=== PATIENT | female | born 1960 | race Caucasian/White ===

== ENCOUNTER 2017-02-22 17:47 | Emergency (ER) | payer BC ==
[2017-02-22 18:04] VITALS: RESP 16; O2SAT 98
--- NOTE | 2017-02-22 19:01 | EDPHY ---
H & P Stated Complaint: skin incision reddened Source: Patient, Family, Old records Exam Limitations: No limitations - Personal History Current Tetanus/Diphtheria Vaccine: Yes Current Tetanus Diphtheria and Acellular Pertussis (TDAP): Yes - Medical/Surgical History Hx Asthma: No Hx Chronic Respiratory Disease: No Hx Diabetes: No Hx Cardiac Disease: No Hx Renal Disease: No Hx Cirrhosis: No Hx Alcoholism: No Hx HIV/AIDS: No Hx Splenectomy or Spleen Trauma: No Other PMH: SBO surg , hypothyroidism , concussion - Social History Smoking Status: Never smoked Time Seen by Provider: 02/22/17 17:51 HPI/ROS: CHIEF COMPLAINT: Surgical incision redness and drainage HISTORY OF PRESENT ILLNESS: 56-year-old female presents to the emergency department with her for redness around her umbilical incision and purulent drainage. Patient had a small bowel obstruction and had surgery at an outside hospital in [place] 6 days ago. 4 days ago she developed redness around her incision and was given IV antibiotics and started on oral antibiotics. Patient was discharged from the hospital yesterday. The redness had improved. This morning she noticed increased redness again, mild tenderness and purulent drainage. Patient reports chills, no fevers, no nausea or vomiting. She does report feeling better today than yesterday. She had a bowel movement today and has been eating without difficulty. Patient is taking Augmentin. She denies cough, shortness of breath, chest pain. REVIEW OF SYSTEMS: A comprehensive 10 point review of systems is otherwise negative aside from elements mentioned in the history of present illness. (Tasha Hearn) - Physical Exam Exam: Physical Exam Gen: Alert and Oriented, NAD HEENT: PERRL, moist mucous membranes NECK: no meningismus CV: regular rate and regular rhythm PULM: CTAB, no wheezes ABDOMEN: soft, umbilical incision with surrounding erythema, purulent drainage from distal aspect of incision, small area of induration under distal incision, other stab incisions to lateral abdomen with no surrounding erythema or drainage. Otherwise abdomen is soft and nontender BACK: No CVA tenderness NEURO: Neurologically grossly intact EXTREMITIES: normal appearing SKIN: no rash or break in skin on exposed skin PSYCH: answers questions appropriately. (Tasha Hearn) Constitutional: Initial Vital Signs Temperature (C) 37.5 C 02/22/17 18:02 Heart Rate 92 02/22/17 18:02 Respiratory Rate 16 02/22/17 18:02 Blood Pressure 142/89 H 02/22/17 18:02 O2 Sat (%) 98 02/22/17 18:02 O2 Delivery Mode Room Air Allergies/Adverse Reactions: epinephrine Allergy (Verified 02/22/17 18:04) Home Medications: Medication Instructions Recorded Sulfamethox/Tmp 800/160 mg 1 tab PO BID #14 tab 02/22/17 [Bactrim Ds] Medical Decision Making - Diagnostics Imaging: Discussed imaging studies w/ will call order clerk Radiologist - Diagnostics Imaging Results: Imaging Impressions Abdomen Ultrasound 02/22/17 18:30 Impression: Evidence of cellulitis in the periumbilical region inferior to the umbilicus and a tiny abscess adjacent to a small drainage tract in the skin, as above. Results called and discussed with Tasha Hearn N.P., on February 22, 2017 at 1926. ED Course/Re-evaluation: I examined this patient with Tasha Heran. Had a long discussion with the patient and her who is a physician in [place]. This patient is not systemically ill. She is feeling much better than even yesterday. She is moving her bowels well. I highly highly doubt any sort of bowel perforation or bowel leak from the anastomosis. Believe she has a superficial skin infection. I was in the room during the ultrasound there is a very tiny maybe quarter of a cm abscess that is already spontaneously draining through the skin. This patient is on Augmentin but I believe we need to broaden her coverage to cover for methicillin-resistant Staph aureus. We will add Bactrim twice daily. This patient is safe to return to [place] tomorrow. The and patient are comfortable with the plan. (Nabil Davies) 56-year-old female presents concerned about an incisional infection after a bowel resection status post small-bowel obstruction 6 days ago. Patient is taking Augmentin. IV established, CBC and chemistry panel obtained which are unremarkable. Patient has evidence of a superficial incisional cellulitis, ultrasound shows no deep abscess. Patient has no evidence of systemic illness or infection. We will add Bactrim to the patient's antibiotics for broader coverage. She is feeling better today than she did yesterday. Patient will return to [place] tomorrow and will follow up with her primary care doctor. She is given strict return precautions. (Tasha Hearn) Differential Diagnosis: Diagnosis considered but not limited to peritoneal abscess, cellulitis, superficial cellulitis, superficial abscess, necrotizing fasciitis, small-bowel obstruction (Tasha Hearn) - Data Points Laboratory Results: Laboratory Results 02/22/17 18:39 02/22/17 18:39 02/22/17 02/22/17 18:39 18:39 WBC 9.21 10^3/uL 10^3/uL (3.80-9.50) RBC 4.42 10^6/uL 10^6/uL (4.18-5.33) Hgb 12.9 g/dL g/dL (12.6-16.3) Hct 37.5 % L % (38.0-47.0) MCV 84.8 fL fL (81.5-99.8) MCH 29.2 pg pg (27.9-34.1) MCHC 34.4 g/dL g/dL (32.4-36.7) RDW 12.1 % % (11.5-15.2) Plt Count 311 10^3/uL 10^3/uL (150-400) MPV 10.6 fL fL (8.7-11.7) Neut % (Auto) 62.9 % % (39.3-74.2) Lymph % (Auto) 24.4 % % (15.0-45.0) Hitchcock % (Auto) 6.7 % % (4.5-13.0) Eos % (Auto) 3.8 % % (0.6-7.6) Baso % (Auto) 0.4 % % (0.3-1.7) Nucleat RBC Rel Count 0.2 % % (0.0-0.2) Absolute Neuts (auto) 5.78 10^3/uL 10^3/uL (1.70-6.50) Absolute Lymphs (auto) 2.25 10^3/uL 10^3/uL (1.00-3.00) Absolute Monos (auto) 0.62 10^3/uL 10^3/uL (0.30-0.80) Absolute Eos (auto) 0.35 10^3/uL 10^3/uL (0.03-0.40) Absolute Basos (auto) 0.04 10^3/uL 10^3/uL (0.02-0.10) Absolute Nucleated RBC 0.02 10^3/uL H 10^3/uL (0-0.01) Immature Gran % 1.8 % H % (0.0-1.1) Immature Gran # 0.17 10^3/uL H 10^3/uL (0.00-0.10) Sodium 141 mEq/L mEq/L (134-144) Potassium 4.3 mEq/L mEq/L (3.5-5.2) Chloride 100 mEq/L mEq/L (97-110) Carbon Dioxide 23 mEq/l mEq/l (22-31) Anion Gap 18 mEq/L H mEq/L (8-16) BUN 13 mg/dL mg/dL (7-23) Creatinine 0.7 mg/dL mg/dL (0.6-1.0) Estimated GFR > 60 Glucose 105 mg/dL H mg/dL (70-100) Calcium 9.9 mg/dL mg/dL (8.5-10.4) Departure - Departure Disposition: Home, Routine, Self-Care Clinical Impression: Postoperative cellulitis of surgical wound Qualifiers: Encounter type: initial encounter Qualified Code(s): T81.4XXA - Infection following a procedure, initial encounter Condition: Good Instructions: Cellulitis (ED) Additional Instructions: Continue taking your Augmentin as prescribed. Start taking Bactrim, 1 pill twice daily for 7 days. Follow-up with your primary care doctor on arrival home to [place] early this week. Return to the emergency department for increasing redness, drainage, pain, fevers, any new symptoms or concerns. Referrals: [facility] [Other] - As per Instructions Prescriptions: Sulfamethox/Tmp 800/160 mg [Bactrim Ds] 1 tab PO BID #14 tab
[2017-02-22 19:06] LABS: ANION GAP 18 mEq/L (8-16); CALCIUM 9.9 mg/dL (8.5-10.4); CARBON DIOXIDE 23 mEq/l (22-31); CHLORIDE 100 mEq/L (97-110); CREATININE 0.7 mg/dL (0.6-1.0); GLOMERULAR FILTRATION RATE > 60; GLUCOSE 105 mg/dL (70-100); POTASSIUM 4.3 mEq/L (3.5-5.2); SODIUM 141 mEq/L (134-144)
[2017-02-22 19:25] LABS: % IMMATURE GRANULYOCYTES 1.8 % (0.0-1.1); ABSOLUTE IMMATURE GRANULOCYTES 0.17 10^3/uL (0.00-0.10); ABSOLUTE NRBC COUNT 0.02 10^3/uL (0-0.01); ADD DIFF? NO; ADD MORPH? NO; ADD SCAN? YES; FRAGMENT RBC FLAG 0 (0-99); HEMATOCRIT 37.5 % (38.0-47.0); HEMOGLOBIN 12.9 g/dL (12.6-16.3); LEFT SHIFT FLG 10 (0-99); LIPEMIA HEMOLYSIS FLAG 90 (0-99); MEAN CELL HEMOGLOBIN 29.2 pg (27.9-34.1); MEAN CELL HEMOGLOBIN CONCENTR. 34.4 g/dL (32.4-36.7); MEAN CELL VOLUME 84.8 fL (81.5-99.8); MEAN PLATELET VOLUME 10.6 fL (8.7-11.7); NRBC-AUTO% 0.2 % (0.0-0.2); PLATELET CLUMPS FLAG 0 (0-99); PLATELET COUNT 311 10^3/uL (150-400); RED BLOOD CELL COUNT 4.42 10^6/uL (4.18-5.33); RED CELL DISTRIBUTION WIDTH 12.1 % (11.5-15.2)
[2017-02-22 19:27] LABS: ATYPICAL LYMPHOCYTE FLAG 260 (0-99)
[2017-02-22 19:48] VITALS: BP 138/76; PULSE 82; TEMP 98.4
[2017-02-22 19:51] LABS: SCAN NEGATIVE
== END 2017-02-22 19:49 | disposition home or self-care (01) ==
DX: T81.4XXA Infection following a procedure, initial encounter (principal); Y82.8 Other medical devices associated with adverse incidents